=== PATIENT | male | born 1990 | race American Indian/Alaskan Native ===

== ENCOUNTER 2019-03-18 21:52 | Emergency (ER) | payer OTHER ==
[2019-03-18 22:15] VITALS: BP 121/88
[2019-03-19] MEDS ORDERED: IBUPROFEN PO ONE (01:00)
[2019-03-19] MEDS ORDERED: TYLENOL PO ONE (01:00)
[2019-03-19] MEDS ORDERED: FLEXERIL PO ONE (01:00)
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
== END 2019-03-19 02:40 | disposition home or self-care (01) ==
LOC: ED 21:52
DX: M62.830 Muscle spasm of back (principal); M62.838 Other muscle spasm; G44.319 Acute post-traumatic headache, not intractable; V89.0XXA Person injured in unspecified motor-vehicle accident, nontraffic, initial encounter; Y93.89 Activity, other specified; Y92.410 Unspecified street and highway as the place of occurrence of the external cause; Y99.8 Other external cause status
CPT/HCPCS: 70450; 72125; 72131